=== PATIENT | male | born 1970 | race Caucasian/White ===

== ENCOUNTER 2022-01-12 07:38 | Outpatient (CLI) | payer OTHER, SELFPAY ==
--- NOTE | 2022-01-12 08:00 | CRLHL7_ITS ---
For Patients: As a result of the Century Cures Act, medical imaging exams and procedure reports are released immediately into your electronic medical record. You may view this report before your referring provider. If you have questions, please contact your health care provider. CLINICAL INFORMATION: Left groin pain, mass. TECHNIQUE: Noncontrast CT of the abdomen and pelvis was obtained. Coronal and sagittal reformatted images were obtained. Radiation Dose Estimate (Total Exam DLP): 1357 mGy-cm. COMPARISON: CT abdomen and pelvis 08/26/2014. FINDINGS: Lower Chest: Lung bases: Unremarkable. Heart/Pericardium: Unremarkable. Abdomen/Pelvis: Liver: Unremarkable. Gallbladder: Unremarkable. Spleen: Unremarkable. Adrenal glands: Unremarkable. Kidneys: No hydronephrosis in either kidney. Stable mild right renal pelviectasis. Pancreas: Unremarkable. Lymph nodes: No retroperitoneal, mesenteric, inguinal, or pelvic adenopathy by CT criteria. Vascular: Abdominal aorta normal in caliber. Bowel: Colon containing left inguinal hernia without evidence for obstruction or strangulation. Urinary bladder: Stable mural calcification within the anterior superior bladder wall. Reproductive structures: Unremarkable for patient`s age. No abdominal/pelvis ascites or free intraperitoneal air. Musculoskeletal: Visualized osseous structures demonstrate diffuse degenerative changes. IMPRESSION: 1. Colon containing left inguinal hernia. No evidence for bowel obstruction or strangulation. Please note that all CT scans at this facility use dose modulation, iterative reconstruction, and/or weight-based dosing when appropriate to reduce radiation dose to as low as reasonably achievable. Dictated by Ezequiel Josue MD @ 01/15/2022 10:58:11 AM (Electronically Signed)
--- NOTE | 2022-01-12 08:15 | CRLHL7_ITS ---
For Patients: As a result of the Century Cures Act, medical imaging exams and procedure reports are released immediately into your electronic medical record. You may view this report before your referring provider. If you have questions, please contact your health care provider. INDICATION: LT TESTICULAR LUMP COMPARISON: none TECHNIQUE: Oreilly scale imaging was performed of the scrotum. In addition color Doppler and spectral Doppler analysis was performed of the testes. FINDINGS: The testes demonstrate normal arterial and venous blood flow on color Doppler and spectral Doppler analysis. The testes have uniform echogenicity with no evidence of a suspicious mass or area of inflammation. The right testis measures 4.7 x 3.3 x 3.0 cm in size and the left testis measures 4.1 x 2.8 x 3.4 cm. Left epididymal head cyst is present measuring 10 x 9 x 16 millimeters. There is no evidence of a hydrocele or varicocele. IMPRESSION: Left epididymal head cyst measuring 1.6 cm. Normal testicles. Dictated by Issa Vilchis MD @ 01/13/2022 11:41:47 AM (Electronically Signed)
== END 2022-01-12 07:39 | disposition home or self-care (01) ==
LOC: CT 07:38
PROVIDERS: PCP Physician Assistant Medical; Visit Provider Physician Assistant Medical
DX: N50.89 Other specified disorders of the male genital organs (principal); R10.32 Left lower quadrant pain; K40.90 Unilateral inguinal hernia, without obstruction or gangrene, not specified as recurrent; R19.00 Intra-abdominal and pelvic swelling, mass and lump, unspecified site
CPT/HCPCS: 74176; 76870; 93976

== ENCOUNTER 2022-02-09 10:03 | Day surgery (SDC) | payer OTHER, SELFPAY ==
[2022-02-09] VITALS (12 sets, daily range): BP systolic 102–145; BP diastolic 50–100; PULSE 73–89; RESP 12–20; TEMP 36.8–36.9; O2SAT 98–100; BMI 28.2
[2022-02-09] MEDS: SODIUM CHLORIDE 0.9 % (FLUSH) 10 ML SYRINGE IVF (10:24)
[2022-02-09] MEDS: LACTATED RINGERS 1000 ML 1,000 ML 100 ML IV (10:24)
[2022-02-09] MEDS: BUPIVACAINE 0.5% 30 ML INJECTION (14:25)
--- NOTE | 2022-02-09 14:51 | W.ANESCHARGE ---
Anesthesia Charges Start Date/Time Anesthesia Start Date: 02/09/22 Anesthesia Start Time: 13:03 Stop Date/Time Anesthesia Stop Date: 02/09/22 Anesthesia Stop Time: 14:50 Summary Emergency: No
--- NOTE | 2022-02-09 15:04 | PM.GSPRC ---
Operative Note Date of procedure: 02/09/22 Pre-op diagnosis: Left inguinal hernia Post-op diagnosis: Same Type of Procedure: Open left inguinal hernia repair with mesh Procedure Description: After discussing the risks and benefits of the procedure, the patient signed informed consent.? The operative site was marked and the patient was brought to the operating room and a spinal anesthetic was administered by anesthesia. The patient was then placed on the operating table in supine position.? Care was taken to pad the patient's pressure points.??The operative site was then prepped and draped in the usual sterile fashion.? A time-out was then performed. Local anesthetic was injected into the skin and subcutaneous tissue overlying the inguinal canal on the patient's left. An ilioinguinal nerve block was performed. An oblique incision was made over the external ring. Dissection was carried down into the subcutaneous tissue using cautery until the external oblique fascia was encountered. This was cleared off. The external ring was identified and after injection of more local anesthetic, the external oblique was incised using a knife. This was extended using the Metzenbaum scissors with care to dissect the underlying cord structures away from the fascia before cutting. The majority of the large hernia was then able to be reduced. The hernia sac was still quite large but it and the cord structures were cleared from the inside of the inguinal canal and able to looped with a [place] drain. A large indirect inguinal hernia was identified. The hernia sac was dissected off of the cord structures. There was tissue noted inside of the sac and therefore it was opened to examine. There was a piece of omental fat which was adherent to the inside of the sac. This was divided and the omentum reduced. There was no bowel noted in the hernia sac or stuck to the hernia sac. The sac was then ligated near the internal ring and reduced into the abdomen. A piece of polypropylene mesh was obtained and cut to size. This was secured to the pubic tubercle using to 0 Prolene on a double-armed suture. The Prolene was run along the inguinal ligament inferiorly and along the transversalis fascia superiorly, securing the tails around the cord and re-creating the internal ring. The new ring was just large enough to permit my fingertip. The wound was examined for hemostasis which was found to be adequate. The external oblique fascia was then reapproximated with absorbable suture. Of note, the ileoinguinal nerve was not noted during the dissection, but care was taken not to avoid any nerve-like structures in the suturing of the mesh. The wound was then closed in layers including Cesar's fascia and the dermis with absorbable suture. The skin was then closed with a running subcuticular suture. Sterile dressings were applied. The scrotum was examined and found to contain both testicles at the end the case. Instrument, sponge, and needle counts were correct at the end of the case. The patient was woken and taken to the PACU in stable condition. Indications: Colon containing left inguinal hernia Findings: Large indirect left inguinal hernia containing colon Anesthesia: MAC and spinal Surgeon: Emilia Posada MD Estimated blood loss (mL): 10 Condition: stable Disposition: PACU
[2022-02-09] MEDS: HYDROCODONE-ACETAMIN 5-325 MG 1 TAB PO (15:42)
== END 2022-02-09 16:25 | disposition home or self-care (01) ==
PROVIDERS: PCP Physician Assistant Medical; Visit Provider Surgery
PROC: (CPT 49505; principal; 2022-02-09 11:30)
DX: K40.90 Unilateral inguinal hernia, without obstruction or gangrene, not specified as recurrent (principal)
CPT/HCPCS: 49505; 00830; A9270; C1781; J2250; J2370; J2400; J2405; J2704; J3010; J3490; J7120

== ENCOUNTER 2023-05-08 07:32 | Outpatient (CLI) | payer OTHER, SELFPAY | END 2023-05-08 07:33 | disposition home or self-care (01) | LOC: NFLDREF 05-09 07:09 | PROVIDERS: PCP Physician Assistant Medical; Referring Provider Physician Assistant Medical; Visit Provider Physician Assistant Medical | DX: I10 Essential (primary) hypertension (principal); Z13.220 Encounter for screening for lipoid disorders; Z12.5 Encounter for screening for malignant neoplasm of prostate | CPT/HCPCS: 80053; 80061; G0103 ==

== ENCOUNTER 2024-03-05 08:09 | Outpatient (CLI) | payer OTHER, SELFPAY | END 2024-03-05 08:10 | disposition home or self-care (01) | LOC: NFLDREF 03-10 02:53 | PROVIDERS: PCP Physician Assistant Medical; Referring Provider Physician Assistant Medical; Visit Provider Physician Assistant Medical | DX: I10 Essential (primary) hypertension (principal); Z12.5 Encounter for screening for malignant neoplasm of prostate; Z13.220 Encounter for screening for lipoid disorders; Z13.29 Encounter for screening for other suspected endocrine disorder | CPT/HCPCS: 80053; 80061; 84443; G0103 ==

== ENCOUNTER 2024-09-26 08:47 | Outpatient (CLI) | payer OTHER, SELFPAY ==
--- NOTE | 2024-09-26 09:15 | CRLHL7_ITS ---
For Patients: As a result of the Century Cures Act, medical imaging exams and procedure reports are released immediately into your electronic medical record. You may view this report before your referring provider. If you have questions, please contact your health care provider. EXAM: MRI OF THE RIGHT FOOT, WITHOUT AND WITH IV CONTRAST CLINICAL INDICATION: Midfoot pain. Primary osteoarthritis. COMPARISON PLAIN FILMS: 08/20/2024 and 07/21/2024. COMPARISON CROSS-SECTIONAL IMAGING STUDIES: None. TECHNICAL: Axial, sagittal and coronal T1, PD and STIR images precontrast. Postcontrast T1 weighted imaging with fat saturation. Contrast: Dotarem, 20 mL IV. FINDINGS: OSSEOUS STRUCTURES LIGAMENTS AND JOINT SPACES: Nondisplaced horizontal fracture of the proximal metaphysis of the 2nd metatarsal with adjacent sclerosis and intramedullary edema. Intramedullary edema in the middle cuneiform consistent with a contusion. Nondisplaced subchondral fracture in the distal aspect of the lateral cuneiform with intramedullary edema. Intramedullary edema in the base of the 3rd metatarsal consistent with a contusion. The pattern is consistent with a Lisfranc type injury. The Lisfranc ligament is intact. Normal congruity of the TMT joints. Moderate to high-grade chondromalacia with mild hypertrophic change in the 1st MTP joint. TENDONS AND MUSCLES: The flexor and extensor tendons are intact. The distal peroneus longus and brevis tendons are intact. Diffuse muscle atrophy and edema. SOFT TISSUES: Mild dorsal subcutaneous edema. No hematoma. IMPRESSION: 1. Nondisplaced fracture of the base of the 2nd metatarsal with contusion in the middle cuneiform. 2. Nondisplaced fracture of the lateral cuneiform with contusion in the 3rd metatarsal. 3. Findings consistent with a Lisfranc injury pattern. The Lisfranc ligament is intact. Normal TMT joint alignment. 4. Dorsal subcutaneous edema. 5. Degenerative changes in the 1st MTP joint. 6. Diffuse muscular atrophy and edema. Dictated by Herbert Steen MD @ 09/29/2024 8:53:03 AM (Electronically Signed)
== END 2024-09-26 08:48 | disposition home or self-care (01) ==
LOC: MRI 08:48
PROVIDERS: PCP Physician Assistant Medical; Visit Provider Podiatrist
DX: M79.671 Pain in right foot (principal); S92.324A Nondisplaced fracture of second metatarsal bone, right foot, initial encounter for closed fracture; S92.334A Nondisplaced fracture of third metatarsal bone, right foot, initial encounter for closed fracture; M19.071 Primary osteoarthritis, right ankle and foot
CPT/HCPCS: 73720; A9575

== ENCOUNTER 2024-10-23 13:20 | Outpatient (CLI) | payer OTHER, SELFPAY ==
--- NOTE | 2024-10-23 14:00 | CRLHL7_ITS ---
For Patients: As a result of the Century Cures Act, medical imaging exams and procedure reports are released immediately into your electronic medical record. You may view this report before your referring provider. If you have questions, please contact your health care provider. DXA BONE MINERAL DENSITY STUDY Reason for exam: Unspecified fracture of right foot. Current height (in): 73. Weight (lb): 218. Menopause age: N/A. Ethnicity: White. 1. Have you had a previous hip or vertebral fracture? No. 2. Have you had any fractures during your adult life which did not result from significant trauma (e.g., auto accident)? No. 3. Did either of your parents have a hip fracture? No. 4. Do you smoke? No. 5. Have you ever taken Glucocorticoids? No. 6. Do you have rheumatoid arthritis? No. 7. Do you have secondary osteoporosis? No. 8. Do you drink 3 or more alcoholic drinks per day? No. 9. Are you being treated for osteoporosis? No. 10. Have you ever taken any of the following medications: Actonel, Evista, Fosamax, Miacalcin, Reclast, Boniva, Forteo, HRT (i.e. estrogen/hormone therapy), Protelos, Prolia, Vitamin D, Calcium, other ??? please specify. ANSWER: No. 11. Do you have any of the following medical conditions: Anorexia or bulimia, asthma or emphysema, end stage renal disease, hyperparathyroidism, any seizure disorders, cancer, inflammatory bowel diseases, hysterectomy, other ??? please specify. ANSWER: No. 12. What was your maximum height (inches)? 73. 13. Do you perform weight bearing exercise regularly? Yes. 14. Do you regularly consume dairy products? Yes. 15. Do you drink caffeinated beverages? Yes. TECHNIQUE: Bone mineral density study was performed using the [employer]. FINDINGS: The results of the study expressed as bone mineral density (BMD) are as follows: Lumbar spine L1 to L4: BMD: 0.815 g/cm2. T-score: -2.5. Z-score: -2.0. Neck Left: BMD: 0.687 g/cm2. T-score: -1.8. Z-score: -0.9. Right: BMD: 0.700 g/cm2. T-score: -1.7. Z-score: -0.8. Total Left: BMD: 0.941 g/cm2. T-score: -0.6. Z-score: -0.2. Right: BMD: 0.898 g/cm2. T-score: -0.9. Z-score: -0.5. IMPRESSION: Osteoporosis. *Comparison exams done prior to 07/2019 were performed on different unit, [facility]. Issa Vilchis M.D. Diagnostic Radiologist [email or web address] DSM/yesenia [email or web address]/Dictated by: Issa Vilchis MD @ 10/23/2024 3:25:00 PM (Electronically Signed)
== END 2024-10-23 13:21 | disposition home or self-care (01) ==
LOC: RAD 13:21
PROVIDERS: PCP Physician Assistant Medical; Visit Provider Physician Assistant Medical
DX: S92.901A Unspecified fracture of right foot, initial encounter for closed fracture (principal); M81.0 Age-related osteoporosis without current pathological fracture
CPT/HCPCS: 77080